=== PATIENT | male | born 1990 | race African-American/Black ===

== ENCOUNTER 2024-05-18 08:08 | Outpatient (CLI) | payer OTHER | END 2024-05-18 08:09 | disposition home or self-care (01) | LOC: BICRAD 08:08 | PROVIDERS: ATTEND Chiropractor | DX: M54.6 Pain in thoracic spine (principal); M54.41 Lumbago with sciatica, right side; M54.42 Lumbago with sciatica, left side | CPT/HCPCS: 72070; 72100 ==